=== PATIENT | male | born 1975 | race Hispanic/Latino ===

== ENCOUNTER → 2020-01-24 | Outpatient (CLI) | payer MEDICARE, OTHER | END | disposition home or self-care (01) | LOC: OIH 15:19 | PROVIDERS: ATTEND Internal Medicine | DX: J18.0 Bronchopneumonia, unspecified organism (principal); I51.7 Cardiomegaly; M47.814 Spondylosis without myelopathy or radiculopathy, thoracic region | CPT/HCPCS: 71046 ==

== ENCOUNTER 2024-12-25 21:44 | Emergency (ER) | payer BC, OTHER ==
[~2024-12-25] VITALS: Ht 170.2 cm; Wt 140.6 kg
--- NOTE | 2024-12-25 21:54 | NUR ---
PT CARE ASSUMED AT THIS TIME
--- NOTE | 2024-12-25 22:04 | NUR ---
PT PRESENTS WITH NON-ADHESIVE DRESSING TO RIGHT LEG.
--- NOTE | 2024-12-25 22:30 | NUR ---
PER HENRRY SAMPSON NO ACTIVE BLEEDING PRESENTED AFTER PRESSURE WAS APPLIED BY DRESSING. PT IS CLEARED FOR DISCHARGE. PT EDUCATED IF UNCONTROLLED BLEEDING BEGINS AT HOME PT IS TO RETURN TO ED. PT VERBALIZED UNDERSTANDING OF EDUCATION.
--- NOTE | 2024-12-25 22:54 | ERN ---
ED Note History of Present Illness Stated Complaint: BLEEDING TO RT LEG Chief Complaint: Other Problems Time Seen by MD: 22:04 Time Seen by Midlevel: 22:04 Dictation: The patient is a 49-year-old male with no significant past medical history who presents to the emergency department with complaints of bleeding to thigh onset 9:00 p.m. after he scratched a scab off. Denies any use of blood thinners. Reports that he sees a animal anatomy teacher for "thick blood" denies any use of medications. Allergies: Coded Allergies: No Known Allergies (Unverified Allergy, Unknown, 12/25/24) Past Medical History Past Medical History: Hypertension Surgical History: None RN Note Reviewed/Agreed w/PFSH: Yes Review of System Dictation Constitutional: Negative for fever,chills, and weight loss Eyes: Negative for injury, pain,redness, and discharge ENT: Negative for injury,pain or swelling Cardiovascular: Negative for chest pain, palpitations, and edema Respiratory: Negative for shortness of breath, cough, and wheezing, Abdomen/GI: Negative for abdominal pain, nausea, vomiting, diarrhea, and constipation Back: Negative for injury and pain : Negative for injury, bleeding and discharge MS/Extremity: Negative for injury and deformity Skin: Positive for right negative bleeding Neuro: Negative for headache, weakness, numbness, tingling, and seizure Psych: Negative for suicide ideation, homicidal ideation, and hallucinations Initial Vital Sign VS Vital Signs Date Time Temp Pulse Resp B/P (MAP) Pulse Ox O2 Delivery O2 Flow Rate FiO2 12/25/24 21:45 98.4 93 18 166/116 96 Room Air 12/25/24 22:04 0 21 Physical Exam Dictation Vital Signs reviewed General Appearance: Alert, oriented x 3, no acute distress, well developed, nourished. Head and Face: non-traumatic. Eyes: PERRL, pink conjunctivas, eyelid no trauma, anterior chamber with arcus senilis. Ears: Pinnas intact and no signs of trauma or erythema ear canals clear and no discharge TM no erythema Nose: No discharge, no bleeding. Oropharynx: Mouth normal, tongue pink. pharynx clear,no erythema, tonsils no exudates, no abscesses noted, mucous membrane moist Neck: Supple, non-tender, no thyromegaly, no masses, no JVD, no bruits Breast:Deferred Chest:No tenderness, no crepitus, no paradoxical movement, no retractions Lungs:Clear, well-ventilated, symmetric, no rales, no wheezing, no rhonchi, no stridor, good breath sounds bilaterally Heart: Regular rate, regular rhythm, no murmur, no gallops Vascular: no peripheral edema, Abdomen: Soft, positive bowel sounds, nondistended, no guarding, nontender, no rebound, no masses no hepatomegaly, no splenomegaly, no Melendez's sign, no hernias. Rectal: Deferred Genital: Deferred Neurological: Normal speech, motor function intact, sensory function intact Musculoskeletal: Neck nontender, full range of motion, back nontender, full range of motion, Extremities: nontender, full range of motion Skin: Color pink, dry, no turgor, no rash, no lacerations, no abrasions, no contusions. small pinpoint scab to right inner thigh. No active bleeding, Lymphatic: Deferred Results (Laboratory/Radiology) Labs Reviewed?: Yes ED Course ED Course Vital Signs Date Time Temp Pulse Resp B/P (MAP) Pulse Ox O2 Delivery O2 Flow Rate FiO2 12/25/24 22:04 98.4 91 16 159/99 96 Room Air* 0 21 12/25/24 21:45 98.4 93 18 166/116 96 Room Air Medical Decision Making MDM The patient is a 49-year-old male with no significant past medical history who presents to the emergency department with complaints of bleeding to thigh onset 9:00 p.m. after he scratched a scab off. Denies any use of blood thinners. Reports that he sees a animal anatomy teacher for "thick blood" denies any use of medications. Small feeling vein to inner right thigh. Pressure And pressure dressing was applied. Patient was reassessed and no longer bleeding from area. Instructed to keep the dressing on a for today until tomorrow and to follow up with the his primary doctor. Patient instructed to return if bleeding continues for possible sutures to varicose vein. Differential diagnosis: Varicose vein, hemorrhage, laceration Need for hospitalization: Patient does not meet criteria for hospitalization. There are no social concerns with this patient. DX & DISP Disposition: Discharge Departure Impression: Primary Impression: Bleeding from varicose veins of right lower extremity Condition: Stable Additional Instructions: keep dressing in place until tomorrow. If you develop numbness or changes in your lower extremity while you have your dressing up you can loosen up the dressing. If bleeding develops again apply pressure. If bleeding does not stop please return to ER. FOLLOW-UP WITH PRIMARY CARE PROVIDER IN 1 TO 2 DAYS. TAKE MEDICATIONS DIRECTED HERE IN THE EMERGENCY ROOM. OKAY TO CONTINUE HOME MEDICATIONS UNLESS OTHERWISE DISCUSSED DURING YOUR VISIT IN THE EMERGENCY ROOM TODAY. RETURN TO YOUR NEAREST EMERGENCY ROOM IF SYMPTOMS WORSEN OR IF THERE IS NO IMPROVEMENT. CALL 911 IF YOU NEED IMMEDIATE ASSISTANCE. TAKE TYLENOL [id number] NEEDED AND IF NO CONTRAINDICATIONS ARE PRESENT. INCREASE ORAL HYDRATION. A WOUND CULTURE OR URINE CULTURE WAS ORDERED HERE IN THE EMERGENCY ROOM DEPARTMENT PLEASE FOLLOW-UP WITH PRIMARY CARE PROVIDER AND ADVISE THEM TO GET REPEAT PORTS FROM OUR FACILITY. IF YOU HAD ANY GWENDOLYN WRAP/SPLINTS THAT WERE APPLIED HERE, PLEASE DO NOT REMOVE THEM UNTIL YOU SEE YOUR PRIMARY CARE OR SPECIALTY. Referrals: [facility] (PCP) Time of Disposition: 22:52 I have reviewed the case, and I agree with, Diagnosis and Plan ADRIÁN MICHELLE [facility] Dec 25, 2024 22:54
[2024-12-25 23:05] VITALS: BP 149/90; PULSE 90; RESP 15; TEMP 98.4; O2SAT 96
== END 2024-12-25 23:20 | disposition home or self-care (01) ==
LOC: EDH 21:44
DX: I83.891 Varicose veins of right lower extremity with other complications (principal); I10 Essential (primary) hypertension
CPT/HCPCS: 99282